=== PATIENT | female | born 1975 | race Caucasian/White ===

== ENCOUNTER 2019-02-06 16:41 | Emergency (ER) | payer OTHER ==
--- NOTE | 2019-02-06 17:29 | PDOC ---
Rapid Medical Evaluation Chief Complaint: Palpitations Time Seen by Provider: 02/06/19 17:27 Medical Evaluation: Allergies Allergy/AdvReac Type Severity Reaction Status Date / Time No Known Allergies Allergy Verified 02/06/19 17:24 02/06/19 17:32 I have performed a brief in-person evaluation of this patient. The patient presents with a chief complaint of: no Pmhx present with complains of sudden onset of palpitations and feeling of numbness and tingling sensation while watching TV an hour ago. Report symptoms improving now. Denies SOB, N/V Pertinent physical exam findings: A&O x 3. heart RRR. lungs CTAB I have ordered the following: EKG, CBC, CMP, cardiac profile The patient will proceed to the ED for further evaluation. Discharge Disposition - Diagnosis Palpitations - Discharge Dispostion Condition at time of disposition: Stable - Referrals - Patient Instructions - Post Discharge Activity
[2019-02-06 17:40] VITALS: BP 128/78; PULSE 75; TEMP 98.2; BMI 31.4
--- NOTE | 2019-02-06 18:04 | PDOC ---
History of Present Illness - General Chief Complaint: Palpitations Stated Complaint: NUMBNESS TO LEGS Time Seen by Provider: 02/06/19 17:27 History Source: Patient - History of Present Illness Timing/Duration: resolved prior to arrival Past History - Past Medical History Allergies/Adverse Reactions: Allergies Allergy/AdvReac Type Severity Reaction Status Date / Time No Known Allergies Allergy Verified 02/06/19 17:24 Home Medications: Ambulatory Orders Cephalexin [Keflex] 500 mg PO BID #20 capsule 02/06/19 COPD: No - Surgical History GI Surgery: Yes (MARILIN) - Suicide/Smoking/Psychosocial Hx Smoking History: Never smoked Hx Alcohol Use: No Drug/Substance Use Hx: No Hx Substance Use Treatment: No Review of Systems - Review of Systems Constitutional: No: Chills, Fever Respiratory: Yes: Shortness of Breath Cardiac (ROS): Yes: Palpitations. No: Chest Pain, Syncope ABD/GI: No: Nausea, Vomiting Musculoskeletal: No: Joint Swelling *Physical Exam - Vital Signs Last Vital Signs Temp Pulse Resp BP Pulse Ox 98.2 F 75 18 128/78 99 02/06/19 17:30 02/06/19 17:30 02/06/19 17:30 02/06/19 17:30 02/06/19 17:30 - Physical Exam General Appearance: Yes: Appropriately Dressed. No: Apparent Distress Neck: positive: Supple Respiratory/Chest: positive: Lungs Clear, Normal Breath Sounds. negative: Respiratory Distress Cardiovascular: positive: Regular Rate, S1, S2 Gastrointestinal/Abdominal: positive: Soft. negative: Tender, Pulsatile Mass Extremity: negative: Tender, Pedal Edema, Swelling Integumentary: positive: Dry, Warm Neurologic: positive: Fully Oriented, Alert, Normal Mood/Affect ED Treatment Course - LABORATORY CBC & Chemistry Diagram: 02/06/19 19:34 02/06/19 19:34 Medical Decision Making - Medical Decision Making 02/06/19 18:03 A 3-year-old female, denies any past medical history was in usual state of health until over an hr ago when while watching TV, started having numbness and tingling in both her feet and hands with palpitations and shortness of breath, since significantly improved. Might have had similar episode in the past but never seek medical care. Patient denies a history of anxiety or recent stressors. Not on control and no other obvious risk factors for DVT, PE. No known thyroid issues. See exam Palpitations w/ sob today Since improved ? 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 take cephalexin as prescribed. Additional Instructions: * Please call your personal physician to report your Emergency Department visit and to report your progress, if any. * If there is no improvement in symptoms in 2 days call your physician. * Return to the Emergency Department for any worsening symptoms. - Post Discharge Activity Forms/Work/School Notes: Back to Work
[2019-02-06 19:57] LABS: BASO % 0.5 % (0-2.0); EOS % 0.7 % (0-4.5); HEMATOCRIT 41.4 % (32.4-45.2); HEMOGLOBIN 13.3 GM/dL (10.7-15.3); LYMPH % 42.8 % (8-40); MCH 29.9 pg (25.7-33.7); MCHC 32.2 g/dl (32.0-36.0); MEAN CELL VOLUME 92.8 fl (80-96); MEAN PLT VOLUME 7.8 fl (7.5-11.1); MONO % 6.4 % (3.8-10.2); NEUT % 49.6 % (42.8-82.8); PLATELET COUNT 290 K/MM3 (134-434); RBC 4.47 M/mm3 (3.60-5.2); RDW 13.7 % (11.6-15.6); WHITE BLOOD COUNT 5.6 K/mm3 (4.0-10.0)
[2019-02-06 20:33] LABS: ALBUMIN 3.9 g/dl (3.4-5.0); ALK PHOS 85 U/L (45-117); ANION GAP 4 MMOL/L (8-16); BILIRUBIN,TOTAL 0.4 mg/dL (0.2-1); BLOOD UREA NITROGEN 11 mg/dL (7-18); CALCIUM 8.4 mg/dL (8.5-10.1); CHLORIDE 106 mmol/L (98-107); CO2 28 mmol/L (21-32); CREATININE 0.8 mg/dL (0.55-1.3); GLUCOSE,RANDOM 86 mg/dL (74-106); POTASSIUM 4.8 mmol/L (3.5-5.1); SGOT/AST 23 U/L (15-37); SGPT/ALT 47 U/L (13-61); SODIUM 138 mmol/L (136-145); TOT PROT 7.4 g/dl (6.4-8.2)
[2019-02-06 21:22] LABS: HCG,QUALITATIVE URINE Negative
[2019-02-06 21:23] LABS: EPI CELLS 5.2 /HPF (0-5/HPF); URINE APPEARANCE CLEAR; URINE BACTERIA 6901.1 /hpf (NEGATIVE); URINE BILIRUBIN NEGATIVE (NEGATIVE); URINE CASTS 1 /lpf (0-8); URINE COLOR YELLOW; URINE GLUCOSE (UA) NEGATIVE (NEGATIVE); URINE KETONE NEGATIVE (NEGATIVE); URINE LEUK ESTERASE TRACE (NEGATIVE); URINE NITRITE POSITIVE (NEGATIVE); URINE PROTEIN NEGATIVE (NEGATIVE); URINE RBC 0 /hpf (0-4); URINE WBC 1 /hpf (0-5)
--- NOTE | 2019-02-06 21:58 | PDOC ---
*Physical Exam - Vital Signs Last Vital Signs Temp Pulse Resp BP Pulse Ox 98.2 F 75 18 128/78 99 02/06/19 17:30 02/06/19 17:30 02/06/19 17:30 02/06/19 17:30 02/06/19 17:30 - Physical Exam General Appearance: Yes: Appropriately Dressed ED Treatment Course - LABORATORY CBC & Chemistry Diagram: 02/06/19 19:34 02/06/19 19:34 - ADDITIONAL ORDERS Additional order review: Laboratory Results 02/06/19 02/06/19 02/06/19 20:36 19:34 19:34 Sodium 138 Potassium 4.8 Chloride 106 Carbon Dioxide 28 Anion Gap 4 L BUN 11 Creatinine 0.8 Est GFR (CKD-EPI)AfAm 105.39 Est GFR (CKD-EPI)NonAf 90.93 Random Glucose 86 Calcium 8.4 L Total Bilirubin 0.4 AST 23 ALT 47 Alkaline Phosphatase 85 Creatine Kinase 130 Troponin I < 0.02 Total Protein 7.4 Albumin 3.9 TSH 0.87 Urine Color Yellow Urine Appearance Clear Urine pH 7.0 D Ur Specific Stanton 1.015 Urine Protein Negative Urine Glucose (UA) Negative Urine Ketones Negative Urine Blood Negative Urine Nitrite Positive H Urine Bilirubin Negative Urine Urobilinogen 1.0 Ur Leukocyte Esterase Trace Urine WBC (Auto) 1 Urine RBC (Auto) 0 Urine Casts (Auto) 1 U Epithel Cells (Auto) 5.2 Urine Bacteria (Auto) 6901.1 Urine HCG, Qual Negative 02/06/19 19:34 RBC 4.47 MCV 92.8 MCHC 32.2 RDW 13.7 MPV 7.8 Neutrophils % 49.6 D Lymphocytes % 42.8 H D Monocytes % 6.4 Eosinophils % 0.7 Basophils % 0.5 Medical Decision Making - Medical Decision Making 02/06/19 21:54 UA nitrite positive. large leuks will treat 02/06/19 21:54 patient is feeling better. advised to follow up with pcp and cardiology Dr carrion *DC/Admit/Observation/Transfer Diagnosis at time of Disposition: Palpitations UTI (urinary tract infection) Qualifiers: Urinary tract infection type: acute cystitis Hematuria presence: without hematuria Qualified Code(s): N30.00 - Acute cystitis without hematuria - Discharge Dispostion Disposition: HOME Condition at time of disposition: Stable - Referrals Referrals: ON STAFF,NOT [Primary Care Provider] - - Patient Instructions Printed Discharge Instructions: DI for Palpitations Additional Instructions: please follow up with your maintenance coordinator as soon as possible. take cephalexin as prescribed. Additional Instructions: * Please call your personal physician to report your Emergency Department visit and to report your progress, if any. * If there is no improvement in symptoms in 2 days call your physician. * Return to the Emergency Department for any worsening symptoms. - Post Discharge Activity Forms/Work/School Notes: Back to Work
--- NOTE | 2019-02-07 13:44 | EKG ---
Test Reason : Blood Pressure : / mmHG Vent. Rate : 067 BPM Atrial Rate : 067 BPM P-R Int : 190 ms QRS Dur : 076 ms QT Int : 410 ms P-R-T Axes : 013 029 043 degrees QTc Int : 433 ms NORMAL SINUS RHYTHM NORMAL ECG NO PREVIOUS ECGS AVAILABLE Confirmed by MD Cardenas Daniel ([id number]) on 02/07/2019 1:44:07 PM Referred By: Confirmed By:Stiven Cardenas MD
== END 2019-02-06 22:16 | disposition home or self-care (01) ==
LOC: JER 16:41
DX: N30.00 Acute cystitis without hematuria (principal); R00.2 Palpitations
CPT/HCPCS: 36415; 80053; 81003; 82550; 84443; 84484; 84703; 85025; 87086; 87186; 93005; 93010; 99282-25

== ENCOUNTER 2022-09-20 15:11 | Emergency (ER) | payer OTHER ==
[2022-09-20 15:26] VITALS: BP 135/85; PULSE 63; RESP 16; TEMP 97.9; BMI 32.5
== END 2022-09-20 16:00 | disposition home or self-care (01) ==
LOC: JERFT 15:11
DX: S90.122A Contusion of left lesser toe(s) without damage to nail, initial encounter (principal); W22.8XXA Striking against or struck by other objects, initial encounter
CPT/HCPCS: 73630-TC-LT; 99283-25

== ENCOUNTER 2022-10-09 14:21 | Emergency (ER) | payer OTHER ==
[2022-10-09 14:27] VITALS: RESP 18; TEMP 98.2; BMI 32.8
[2022-10-09 16:38] LABS: BASO % 4.2 % (0-2.0); EOS % 1.4 % (0-4.5); HEMATOCRIT 39.7 % (32.4-45.2); HEMOGLOBIN 13.2 GM/dL (10.7-15.3); LYMPH % 29.7 % (8-40); MCH 30.2 pg (25.7-33.7); MCHC 33.2 g/dl (32.0-36.0); MEAN CELL VOLUME 91.2 fl (80-96); MEAN PLT VOLUME 7.7 fl (7.5-11.1); MONO % 4.9 % (3.8-10.2); NEUT % 59.8 % (42.8-82.8); PLATELET COUNT 287 10^3/uL (134-434); RBC 4.35 M/mm3 (3.60-5.2); RDW 13.7 % (11.6-15.6)
[2022-10-09 16:48] LABS: INR 1.04 (0.83-1.09)
[2022-10-09 16:50] LABS: ACTIVATED PTT 31.5 SECONDS (25.2-36.5)
[2022-10-09 16:54] LABS: CALCIUM 8.7 mg/dL (8.5-10.1)
[2022-10-09 16:55] LABS: ALBUMIN 3.9 g/dl (3.4-5.0); BLOOD UREA NITROGEN 16.1 mg/dL (7-18)
[2022-10-09 16:58] LABS: CREATININE 0.9 mg/dL (0.55-1.3)
[2022-10-09 16:59] LABS: BILIRUBIN,TOTAL 0.4 mg/dL (0.2-1); TOT PROT 7.2 g/dl (6.4-8.2)
[2022-10-09 17:13] VITALS: BP 112/67; PULSE 63
[2022-10-09] MEDS ORDERED: DALBAVANCIN HCL 1,500 MG in DEXTROSE 5%-WATER - 500 ML IVPB ONE (17:27)
[2022-10-09] MEDS ORDERED: DALBAVANCIN HCL 500 MG VIAL (RESTRICTED TO ID ONLY) IVPB ONE (18:47)
== END 2022-10-09 20:12 | disposition home or self-care (01) ==
LOC: JER 14:21
PROC: 3E033GC Introduction of Other Therapeutic Substance into Peripheral Vein, Percutaneous Approach (ICD-10-PCS; principal; 2022-10-09)
DX: L03.032 Cellulitis of left toe (principal)
CPT/HCPCS: 36415; 73660-TC-LT-FY; 80053; 85025; 85610; 85730; 86850; 86900; 86901; 93926-TC; 99284-25; J0875

== ENCOUNTER 2025-02-05 20:52 | Emergency (ER) | payer OTHER ==
[2025-02-05 21:00] VITALS: BP 113/88; PULSE 61; RESP 18; TEMP 97.3; BMI 32.5
[2025-02-05] MEDS ORDERED: DIPHTH,PERTUSS(ACELL),TET 0.5 ML DISP.SYRIN IM ONE (21:56)
[2025-02-05] MEDS ORDERED: ACETAMINOPHEN 500 MG TABLET (FP) ONE (21:56)
[2025-02-05] MEDS: ACETAMINOPHEN 500 MG TABLET (FP) PO ONE (21:59)
[2025-02-05] MEDS: DIPHTH,PERTUSS(ACELL),TET 0.5 ML DISP.SYRIN IM ONE (22:00)
== END 2025-02-05 22:01 | disposition home or self-care (01) ==
LOC: JERFT 20:52
PROC: 0HQFXZZ Repair Right Hand Skin, External Approach (ICD-10-PCS; principal; 2025-02-05)
PROC: 3E0234Z Introduction of Serum, Toxoid and Vaccine into Muscle, Percutaneous Approach (ICD-10-PCS; 2025-02-05)
DX: S61.216A Laceration without foreign body of right little finger without damage to nail, initial encounter (principal); Z23 Encounter for immunization; W26.0XXA Contact with knife, initial encounter
CPT/HCPCS: 12001-25; 90471; 90715; 99284-25

== ENCOUNTER 2025-02-14 21:08 | Emergency (ER) | payer OTHER ==
[2025-02-14 21:13] VITALS: BP 139/72; PULSE 54; RESP 18; TEMP 98.5; BMI 32.5
== END 2025-02-14 22:02 | disposition home or self-care (01) ==
LOC: JERFT 21:08
DX: Z48.02 Encounter for removal of sutures (principal)
CPT/HCPCS: 99281-25